=== PATIENT | female | born 1960 | race Caucasian/White ===

== ENCOUNTER 2017-09-19 06:35 | Day surgery (SDC) | payer MEDICARE, OTHER ==
[~2017-09-19 06:35] MED LIST: ADVIL200 MG PO; ALEVE220 M1 PO; AUGMENTIN875TAB PO; BUPROPION HCL150 M2 PO; DELZICOL400 MG PO; FERROUS FUM324 MG PO; HYDROCO/APAP1 TA9 PO; LISINOP/HCTZ1 TA2 PO; OSTEO BI-FLE PO; PHENTERMINE H37.5 MG PO; PRILOSEC20 MG PO
[2017-09-19] MEDS ORDERED: LORTAB 7.57.5 MG PO (08:36)
[2017-09-19 09:14] VITALS: BP 127/53
== END 2017-09-19 09:46 | disposition home or self-care (01) ==
LOC: ORM 06:35
PROVIDERS: ATTEND Obstetrics & Gynecology
PROC: 0UDB7ZX Extraction of Endometrium, Via Natural or Artificial Opening, Diagnostic (ICD-10-PCS; principal; 2017-09-19)
DX: N85.02 Endometrial intraepithelial neoplasia [EIN] (principal); E66.01 Morbid (severe) obesity due to excess calories; Z68.43 Body mass index [BMI] 50.0-59.9, adult; E11.9 Type 2 diabetes mellitus without complications; I10 Essential (primary) hypertension

== ENCOUNTER 2019-09-25 | Inpatient (IN) | payer MEDICARE, OTHER ==
[2019-09-24] VITALS (8 sets, daily range): BP systolic 116–152; BP diastolic 68–80
--- NOTE | 2019-09-24 00:53 | NUR ---
TO TX ROOM WITH STEADY GAIT
--- NOTE | 2019-09-24 00:54 | NUR ---
PT. WITH C/O ABD. PAIN FROM A HERNIA THAT IS TO BE REPAIRED HERE ON 09/29/19. BOWEL SOUNDS + IN ALL 4 QUADS.
[2019-09-24 01:29] LABS: IMMATURE GRANULOCYTES 0.6 % (0.0-5.0); MEAN CELL VOLUME 87.6 fL CALC (80.0-100.0); MEAN CORPUSCULAR HGB 28.9 pG CALC (26.0-32.0); NEUT# 17.94 thou/uL (2.00-7.15); RED BLOOD COUNT 5.57 mill/uL (4.20-5.60); RED CELL DISTRI WIDTH 14.8 % (11.5-15.5)
--- NOTE | 2019-09-24 01:32 | NUR ---
IVF, IV PAIN MED IV ANTIEMETIC, AND PO GASTROGRAPHIN GIVEN PER MD ORDER.
[2019-09-24 01:33] LABS: HEMATOCRIT 48.8 % (37.0-47.0); HEMOGLOBIN 16.1 g/dl (12.0-16.0)
[2019-09-24 01:43] LABS: ALBUMIN 4.2 g/dL (3.2-5.0); ALKALINE PHOSPHATASE 127 u/l (38-126); BUN 15 mg/dL (7-17); BUN/CREATININE RATIO 20 (12-20 (CALC)); CARBON DIOXIDE 25 mmol/l (22-30); CHLORIDE 94 mmol/l (95-108); CREATININE 0.7 mg/dL (0.5-1.0); GFR > 60 ML/MIN (>=60 (CALC)); GFR FOR AFR.AMER. > 60 ML/MIN (>=60 (CALC)); POTASSIUM 4.6 mmol/l (3.5-5.1); TOTAL PROTEIN 8.5 g/dL (6.3-8.2)
[2019-09-24 01:50] LABS: ANION GAP 18 (6-22 (CALC)); BILIRUBIN, TOTAL 0.9 mg/dL (0.0-1.4); SGOT/AST 92 u/l (14-36); SODIUM 132 mmol/l (137-146)
--- NOTE | 2019-09-24 02:14 | NUR ---
PT. DRINKING GASTROGRAPHIN, NO C/O NAUSEA OR VOMITING OFFERED.
--- NOTE | 2019-09-24 02:15 | NUR ---
PT. STATES HER ABD. PAIN IS NOW DECREASED TO A 6 ON A SCALE OF 1-10.
--- NOTE | 2019-09-24 03:15 | NUR ---
RESTING ON STRETCHER, NO C/O AT THIS TIME.
[2019-09-24 04:13] LABS: URINE BLOOD DIPSTICK NEGATIVE (NEGATIVE); URINE COLOR YELLOW; URINE GLUCOSE - DIPSTICK NEGATIVE (NEGATIVE); URINE KETONE TRACE mg/dL (NEGATIVE); URINE LEUK ESTERASE NEGATIVE (NEGATIVE); URINE NITRITE - DIPSTICK NEGATIVE (Negative); URINE PH 5.5 (4.5-8.0); URINE PROTEIN - DIPSTICK 30 mg/dL (NEG-TRACE); URINE UROBILINOGEN - DIPSTICK 0.2 E.U./dL (0.2)
--- NOTE | 2019-09-24 04:24 | NUR ---
IN ROOM TO DISCUSS CLINICAL FINDINGS WITH PT. VERBALIZED UNDERSTANDING.
[2019-09-24 04:37] LABS: URINE BILIRUBIN - DIPSTICK SMALL (NEGATIVE)
[2019-09-24 04:48] LABS: URINE SQUAMOUS EPITHELIAL CELL FEW EPI/hpf (0-FEW)
--- NOTE | 2019-09-24 05:20 | NUR ---
PT. TAKEN TO [facility] VIA STRETCHER WITH DAUGHTER AND BELONINGS. NO C/O.
--- NOTE | 2019-09-24 09:56 | NUR ---
CALL PLACED TO WILLIE REGARDING NAUSEA AND ELEVATED BLOOD SUGAR. PT NPO. MESSAGE LEFT WITH NURSE EDMAR. AWAITING CALL BACK.
--- NOTE | 2019-09-24 11:00 | NUR ---
PT UPDATED WITH PLAN FOR OR TODAY. PT AGREES WITH PLAN.
--- NOTE | 2019-09-24 11:06 | NUR ---
PT OFF FLOOR TO OR.
[2019-09-24 16:43] LABS: BUN 20 mg/dL (7-17); BUN/CREATININE RATIO 19 (12-20 (CALC)); CHLORIDE 103 mmol/l (95-108); GFR 57 ML/MIN (>=60 (CALC)); GFR FOR AFR.AMER. > 60 ML/MIN (>=60 (CALC)); SODIUM 131 mmol/l (137-146)
[2019-09-24 16:44] LABS: ANION GAP 17 (6-22 (CALC)); CARBON DIOXIDE 16 mmol/l (22-30); POTASSIUM 5.3 mmol/l (3.5-5.1)
[2019-09-24 16:57] LABS: HEMATOCRIT 37.4 % (37.0-47.0); HEMOGLOBIN 11.9 g/dl (12.0-16.0); IMMATURE GRANULOCYTES 0.5 % (0.0-5.0); MEAN CELL VOLUME 91.2 fL CALC (80.0-100.0); MEAN CORPUSCULAR HGB CONC 31.8 g/L CALC (32.0-36.0); NEUT# 15.04 thou/uL (2.00-7.15); RED BLOOD COUNT 4.1 mill/uL (4.20-5.60); RED CELL DISTRI WIDTH 14.8 % (11.5-15.5)
--- NOTE | 2019-09-24 17:20 | NUR ---
PT RETURNED FROM PACU
--- NOTE | 2019-09-24 19:17 | NUR ---
REPORT RECEIVED FROM GRACIELA PAK, PT RESTING IN BED NO S/S OF DISTRESS AT THIS TIME, WILL CONTINUE TO MONTIOR.
--- NOTE | 2019-09-24 21:30 | NUR ---
PT RESTING IN BED RESPIRATIONS EVEN AND UNLABORED ON O2 @ 2L VIA NC. LUNGS SOUND CLEAR. PEDAL PULSES STRONG. SAFETY PRECAUTIONS IN [place]. WILL CONTINUE TO MONITOR.
[~2019-09-25] MED LIST changes: +GLIPIZIDE10 MG PO; +LORTAB 7.57.5 MG PO; +METFORMIN500 MG PO; +OMEPRAZOLE DR20 MG PO
--- NOTE | 2019-09-25 00:10 | NUR ---
PT PROVIDED WITH ICE CHIPS PER REQUEST.
[2019-09-25 00:24] VITALS: BP 135/85
[2019-09-25 03:41] VITALS: BP 114/67
--- NOTE | 2019-09-25 04:05 | NUR ---
PT RESTING IN BED, DAUGHTER AT BEDSIDE. NO S/S OF DISTRESS AT THIS TIME.
[2019-09-25 05:37] LABS: ANION GAP 13 (6-22 (CALC)); BUN 26 mg/dL (7-17); BUN/CREATININE RATIO 28 (12-20 (CALC)); CHLORIDE 104 mmol/l (95-108); CREATININE 0.9 mg/dL (0.5-1.0); GFR > 60 ML/MIN (>=60 (CALC)); GFR FOR AFR.AMER. > 60 ML/MIN (>=60 (CALC)); POTASSIUM 4.8 mmol/l (3.5-5.1); SODIUM 135 mmol/l (137-146)
[2019-09-25 05:39] LABS: CARBON DIOXIDE 23 mmol/l (22-30)
[2019-09-25 05:42] LABS: HEMATOCRIT 39.5 % (37.0-47.0); HEMOGLOBIN 12.2 g/dl (12.0-16.0); IMMATURE GRANULOCYTES 0.5 % (0.0-5.0); MEAN CELL VOLUME 93.8 fL CALC (80.0-100.0); MEAN CORPUSCULAR HGB CONC 30.9 g/L CALC (32.0-36.0); PLATELET COUNT 373 thou/uL (130-400); RED BLOOD COUNT 4.21 mill/uL (4.20-5.60); RED CELL DISTRI WIDTH 15.3 % (11.5-15.5)
[2019-09-25 06:29] LABS: BAND 17 % (0-8); IMMATURE CELLS 0 %; MANUAL DIFFERENTIAL YES
[2019-09-25 07:40] VITALS: BP 105/65
--- NOTE | 2019-09-25 08:31 | NUR ---
ASSESSMENT DONE. PT IS A&O X3. PT STATED PAIN IN ABD 03/04. MEDICATED PT WITH TORADOL. IVF INFUSING WELL. ICE CHIPS PROVIDED. SCD IN PLACE. EDUCATED PT HOW TO USE THE I.S PT VERBALIZED UNDERSTANING AND WILL USE IT LATER. HARRIS IS PATENT WITH LINDA URINE. DRESSINGS IN ABD CDI. X2 ANNIE IN PLACE WITH RED DRAINAGE NOTED. DAUGHTER IN ROOM. CALL LIGHT IN REACH.
--- NOTE | 2019-09-25 08:50 | NUR ---
DR. TAPIA AT BEDSIDE TO ASSESS PT AND DISCUSS POC WITH PT.
[2019-09-25 10:30] VITALS: BP 118/78
--- NOTE | 2019-09-25 11:15 | NUR ---
PT IS SITTING IN RECLINER WITH NO S/S OF DISTRESS NOTED. PT DENIES NEEDS AT THIS TIME. CALL LIGHT IN REACH.
--- NOTE | 2019-09-25 14:48 | NUR ---
PT IS IN BED. PT STATED PAIN IN ABS 03/04. MEDICATED PT WITH DILAUDID. ICE CHIPS PROVIDED. PT DENIES ANY OTHER NEEDS AT THIS TIME. DAUGHTER IN ROOM. CALL LIGHT IN REACH.
[2019-09-25 15:00] VITALS: BP 114/55
--- NOTE | 2019-09-25 15:28 | NUR ---
PT IS RESTING IN BED VISTITING IN ROOM WITH FRIEND . PT DENIES ANY NEEDS AT THIS TIME. CALL LIGHT IN REACH.
--- NOTE | 2019-09-25 19:00 | NUR ---
REPORT RECEIVED FROM GRACIELA LION. PT RESTING IN RECLINER, NO S/S OF DISTRESS AT THIS TIME. WILL CONTINUE TO MONITOR.
[2019-09-25 19:20] VITALS: BP 112/67
--- NOTE | 2019-09-25 22:10 | NUR ---
PT BULB CAME OFF OF THE END OF THE ANNIE DRAIN, BULB PLACE BACK ON ANNIE DRAIN, ANNIE DRAINING.
--- NOTE | 2019-09-25 22:15 | NUR ---
PATIENT REPORT RECEIVED FROM SN ALIYA. PATIENT SITTING ON TOILET. PT HAD MEDIUM SIZED LOOSE STOOL. PERICARE PROVIDED. PT ASSISTED BACK TO BED. CALL LIGHT WITHIN EASY REACH, BED IN LOWEST POSITION. PT IS ABLE TO MAKE NEEDS KNOWN. AUDIOVISUAL LIBRARIAN WILL CONTINUE TO MONITOR.
--- NOTE | 2019-09-26 | NUR ---
ANTIBIOTIC ADMINISTERED PER ORDER. PT RESTING COMFORTABLY. ANNIE DRAIN EMPTIED OUT. RIGHT ANNIE DRAIN WITH 40CC SANGUINEOUS FLUID. LEFT ANNIE DRAIN WITH 10CC SANGUINEOUS FLUID. CARD GAME OPERATOR WILL CONTINUE TO MONITOR
--- NOTE | 2019-09-26 01:41 | NUR ---
DILAUDID ADMISITERED FOR COMPLAINT OF PAIN LEVEL OF 7/10. FLEXOGRAPHIC PRESS HELPER WILL CONTINUE TO MONITOR.
[2019-09-26 03:55] VITALS: BP 104/63
--- NOTE | 2019-09-26 04:06 | NUR ---
PATIENT DENIES PAIN. RESTING COMFORTABLY. PATIENT AGREES TO NOTIFY CARE MANAGEMENT COORDINATOR OF ANY CONCERNS. CARE MANAGEMENT COORDINATOR WILL CONTINUE TO MONITOR
--- NOTE | 2019-09-26 06:42 | NUR ---
TORADOL ADMINISTERED FOR COMPLAINT OF PAIN WITH GOOD EFFECT
[2019-09-26 06:52] LABS: ANION GAP 11 (6-22 (CALC)); BUN 22 mg/dL (7-17); BUN/CREATININE RATIO 31 (12-20 (CALC)); CARBON DIOXIDE 21 mmol/l (22-30); CHLORIDE 110 mmol/l (95-108); CREATININE 0.7 mg/dL (0.5-1.0); GFR > 60 ML/MIN (>=60 (CALC)); GFR FOR AFR.AMER. > 60 ML/MIN (>=60 (CALC)); SODIUM 138 mmol/l (137-146)
[2019-09-26 07:55] VITALS: BP 127/71
--- NOTE | 2019-09-26 07:55 | NUR ---
RESTING IN BED ON ROUNDS, AWAKENS TO NAME. RESP NON-LABORED. LUNGS CLEAR THROUGHOUT. ABD OBESE, SOFT, SURGICALLY TENDER WITH ACTIVE BOWEL SOUNDS HEARD. MIDLINE AND LLQ DSGS CDI. ANNIE TO MIDLINE AND TO LEFT INC INTACT, COMPRESSED WITH SEROSANGUINOUS DRAINAGE NOTED. 2X2'S SECURED WITH TEGADERM IN PLACE TO PUNCTURE SITES JONA BS, ALL ARE CDI. GENERALIZED EDEMA NOTED. HARRIS DRAINING LINDA URINE WITH SEDIMENT. SCD'S IN PLACE TO BLE. IV IN RFA, SITE BENIGN, NS INFUSING AT 150 MLHR. DENIES NEEDS AT THIS TIME. CALL RAI IN REACH.
--- NOTE | 2019-09-26 10:30 | NUR ---
SITTING UP IN RECLINER WITH LEGS ELEVATED. DAUGHTER AT BEDSIDE.
[2019-09-26 11:22] VITALS: BP 145/76
--- NOTE | 2019-09-26 11:40 | NUR ---
DR HILL IN TO SEE PATIENT. INFORMED DR OF GENERALIZED EDEMA AND BM X3. PATIENT IVF'S DECREASED TO 75 ML/HR. PATIENT TO START CLEAR LIQUID DIET FOR LUNCH.
--- NOTE | 2019-09-26 13:00 | NUR ---
PATIENT TOLERATED CLEAR LIQUID LUNCH WELL. DENIES ANY NAUSEA. RESTING IN RECLINER.
--- NOTE | 2019-09-26 14:15 | NUR ---
MEDICATED FOR C/O OPERATIVE PAIN WITH PERCOCET 5/325.
--- NOTE | 2019-09-26 15:00 | NUR ---
PATIENT NAPPING IN RECLINER.
[2019-09-26 15:25] VITALS: BP 130/81
--- NOTE | 2019-09-26 18:00 | NUR ---
ANNIE DRAIN #1 MIDLINE HAD MINIMAL OUTPUT OF SEROSANGUINOUS-10 ML. ANNIE DRAIN #2 RT ABD HAD 110 ML OUT SEROSANGUINOSUS FLUID.
[2019-09-26 18:54] VITALS: BP 159/80
--- NOTE | 2019-09-26 19:58 | NUR ---
PT SITTING IN RECLINER. A&O X3. O2 @2L VIA NC IN PLACE. NO DISTRESS NOTED. PT C/O OF FEELING BLOATED BUT STATES THAT IT GOES AWAY WHENEVER SHE AMBULATES AROUND HER ROOM AND PASSES GAS. PER PT SHE HAS BEEN TOLERATING THE LIQUID DIET WITHOUT FEELING NAUSEOUS. ABD DRESSINGS CDI. ANNIE DRAIN #1 & #2 DRAINING SEROSANGUINEOUS FLUID. NO OTHER NEEDS AT THIS TIME. DISCUSSED POC. ASSESSMENT COMPLETED. CALL LIGHT IN REACH. CONTINUE TO MONITOR.
--- NOTE | 2019-09-26 21:09 | NUR ---
PT C/O PAIN 04/04. TORADOL GIVEN. PT TOLERATED WELL. CONTINUE TO MONITOR.
--- NOTE | 2019-09-26 21:34 | NUR ---
REASSESSED PTS PAIN LEVEL, PER PT "IT IS STILL THE SAME IT DID NOT SEEM TO HELP"
--- NOTE | 2019-09-26 22:38 | NUR ---
IV DILAUDID GIVEN. PT TOLERATED WELL. WILL REASSESS.
--- NOTE | 2019-09-26 23:03 | NUR ---
PTS PAIN LEVEL 3/10. PER PT "THIS MEDICATION REALLY HELPED ME". CONTINUE TO MONITOR.
--- NOTE | 2019-09-27 01:00 | NUR ---
PT SLEEPING IN BED WITH DAUGHTER AT BEDSIDE. NO DISTRESS NOTED. RESP EVEN AND UNLABORED. CONTINUE TO MONITOR.
[2019-09-27 04:35] VITALS: BP 131/75
[2019-09-27 07:18] VITALS: BP 136/79
--- NOTE | 2019-09-27 07:30 | NUR ---
ASSESSMENT DONE. PT IS A&O X3. PT STATED PAIN IN ABD. MEDICATED PT WITH TORADOL. ABD DRESSINGS IN PLACE AND X2 ANNIE IN PLACE. ENCOURAGE PT TO USE THE I.S. IVF INFUSING WELL. KIMBERLY IS PATENT WITH LINDA URINE. SCD IN PLACE. CALL LIGHT IN REACH. DAUGHTER IN ROOM.
--- NOTE | 2019-09-27 11:10 | NUR ---
PT IS SITTING IN THE RECLINER. PT STATED PAIN IS OKAY . PT DENIES PAIN MEDICATION AT THIS TIME OR NEEDS. CALL LIGHT IN REACH.
--- NOTE | 2019-09-27 12:13 | NUR ---
DR. TAPIA IN ROOM TO ASSESS PT. NOTIFIED MD THAT PT VOMITED. CALL LIGHT IN REACH.
--- NOTE | 2019-09-27 14:48 | NUR ---
MEDICATED PT WITH ZOFRAN. PT VOMITED 250ML GREEN COLOR. DRESSINGS CHANGE IN ABD. REMOVED HARRIS AND PT TOLERATED WELL. CALL LIGHT IN REACH.
[2019-09-27 15:45] VITALS: BP 164/82
--- NOTE | 2019-09-27 16:00 | NUR ---
PT IS SITTING IN RECLINER. PT STATED PAIN IN ABD 05/05. MEDICATED PT WITH DILAUDID. ICE CHIPS PROVIDED PER PT REQUEST. PT DENIES ANY OTHER NEEDS AT THIS TIME. CALL LIGHT IN REACH.
[2019-09-27 18:45] VITALS: BP 171/96
--- NOTE | 2019-09-27 19:50 | NUR ---
PT SITTING IN RECLINER. A&O X3. O2 VIA NC @2L IN PLACE. PT C/O OF NAUSEA, CURRENT VOMITING EPISODE GREEN IN COLOR. PT C/O OF PAIN 8/10 IN ABD AREA. GENERALIZED EDEMA NOTED. PT STATES THAT SHE HAS NOT BEEN ABLE TO EAT OR DRINK ANYTHING TODAY DUE TO HER FEELING BLOATED. REGLAN AND DILAUDID GIVEN. ASSISTED PT TO THE RECLINER. SCD'S IN PLACE. DISCUSSED POC. ASSESSMENT COMPLETED. CALL LIGHT IN REACH. CONTINUE TO MONITOR.
--- NOTE | 2019-09-27 21:07 | NUR ---
PT STATES THAT SHE IS FEELING A LITTLE BETTER. ASKED FOR GINGERALE AND ICE. CONTINUE TO MONITOR.
--- NOTE | 2019-09-27 23:27 | NUR ---
PT C/O OF NAUSEA. ZOFRAN GIVEN. CONTINUE TO MONITOR.
--- NOTE | 2019-09-27 23:48 | NUR ---
PT ASKED IF SHE HAS URINATED, PER PT SHE HAS NOT. EXPLAINED TO PT THAT A BLADDER SCAN WOULD BE OBTAINED. PT AGREED AND VERBALIZED UNDERSTANDING.
--- NOTE | 2019-09-28 00:08 | NUR ---
BLADDER SCAN OBTAINED, DIFFICULTY GETTING AN ACCURATE READING. MULTIPLE READINGS SHOWED 41.
--- NOTE | 2019-09-28 01:35 | NUR ---
PT C/O N/V AND SHARP PAIN 04/04. REGLAN AND DIAUDID GIVEN.
--- NOTE | 2019-09-28 01:45 | NUR ---
PER PT SHE HAD THE URGE TO GO TO THE BATHROOM. PT ASSISTED TO THE BATHROOM BY DAUGHTER BUT PT UNABLE TO MAKE IT IN TIME, STATES THAT SHE HAD A "VERY GOOD AMOUNT COME OUT " AND THAT SHE FEELS MUCH BETTER. ASSISTED PT BACK INTO RECLINER AND ELEVATED LEGS ON THE BED TO DECREASE SWELLING. CALL LIGHT IN REACH CONTINUE TO MONITOR.
--- NOTE | 2019-09-28 02:00 | NUR ---
PT SITTING IN RECLINER WITH DAUGHTER AT BEDSIDE. PT STATES HER PAIN LEVEL IS DECREASING AND THE N&V IS SUBSIDING. CONTINUE TO MONITOR.
--- NOTE | 2019-09-28 03:30 | NUR ---
PT SLEEPING IN RECLINER WITH DAUGHTER AT BEDSIDE. NO DISTRESS NOTED. CONTINUE TO MONITOR.
[2019-09-28 03:50] VITALS: BP 169/88
[2019-09-28 07:40] VITALS: BP 182/99
--- NOTE | 2019-09-28 07:40 | NUR ---
ASSESSMENT IS COMPLTED: PT IS SITTING IN THE CHAIR. NO DISTRESS NOTED. IV SITE IS FREE FROM REDNESS OR EDMEA. HR IS REG,PULSES ARE STRONG X4, ABD IS SOFT AND DISTENDED. DRESSING IS CDI. 2 ANNIE DRAINS 1 SMALL DRAINAGE, 2 MODERATE DRAINAGE. SCD'S IN PLACE. PT IS SITTING IN THE CHAIR. CONTINUE TO OBSERVE AND MONITOR.
--- NOTE | 2019-09-28 08:28 | NUR ---
SPOKEW ITH DR TAPIA RE: PT VOMITING AND PASSING GAS HAVING BM
--- NOTE | 2019-09-28 09:46 | NUR ---
PT WENT FOR A SBS. UNABLE TO COMPLETE HAS CONTRAST IN THE COLON. RESIDUAL FROM 09/24/19. AT 1024 RECEIVED A CALL FROM [facility] TO INFORM THIS METAL MINE INSPECTOR THEY WILL SPEAK WITH DR. TAPIA RE: THIS MATTER.
--- NOTE | 2019-09-28 12:15 | NUR ---
PT IS RELAXING IN BED WITH NO DISTRESS NOTED. IV SITE IS FREE FROM REDNESS OR EDEMA.CONTINUE TO OBSERVE AND MONITOR.
--- NOTE | 2019-09-28 15:30 | NUR ---
CALLED DR TAPIA RE: PT C/O GAS BUILD UP, AND BP HIGH , NEW MEDS WERE ORDERED TO START GIVING PT.
[2019-09-28 15:40] VITALS: BP 186/104
--- NOTE | 2019-09-28 16:30 | NUR ---
PT IS RELAXING IN THE CHAIR, NO DISTRESS NOTED. IV SITE IS FREE FROM RENDESS OR EDMEA.
--- NOTE | 2019-09-28 18:22 | NUR ---
IV SITE CAME OUT ,
--- NOTE | 2019-09-28 18:40 | NUR ---
REMOVED DRESSING ON ABD AND REPLACED WITH ABD PAD . AND ANNIE DRAINAGE 4X4'S. PT TOLERATED WELL. USED CLEAN TECHNIQUE.
--- NOTE | 2019-09-28 18:45 | NUR ---
VANITA RN REPLACED IV WITH #22 IN LFA WITH 1 ATTEMPT PT TOLERATED WELL
[2019-09-28 19:23] VITALS: BP 163/97
--- NOTE | 2019-09-28 20:00 | NUR ---
SHIFT REPORT RECEIVED FROM ARI COVARRUBIAS. PT IN ROOM SITTING UP IN CHAIR. CALL LIGHT WITHIN EASY REACH. CLINICAL MANAGER WILL CONTINUE TO MONITOR
--- NOTE | 2019-09-28 21:00 | NUR ---
SIMETHICONE AND OXYCODONE/ACETAMINOPHEN ADMINISTERED FOR 7/10 STOMACH PAIN. PT STATES PAIN IS SHARP STATES SHE IS HAVING GAS PAIN. EDUCATION PROVIDED ON USE OF SIMETHICONE FOR GAS PAIN. REGLAN ADMINISTERED FOR COMPLAINT OF NAUSEA. PT EDUCATED ON AMBULATING TO HELP RELIEVE GAS PAIN. SET UP INSPECTOR WILL CONTINUE TO MONITOR.
--- NOTE | 2019-09-28 22:10 | NUR ---
SKEIN BLEACHER ADMINISTERED DILAUDID FOR COMPLAINT OF 9/10 PAIN IN ABDOMEN. PT STATES THAT SHE IS HAVING GAS PAIN DESCRIBES PAIN "SHARP AND CRAMPLIKE". PT STATES SHE IS BELCHING AND PASSING GAS. SKEIN BLEACHER WILL CONTINUE TO MONITOR.
--- NOTE | 2019-09-28 22:54 | NUR ---
PT STATES PAIN IS RESOLVING. PT RATES PAIN AT 7 AT THIS TIME AND STATE THAT SHE IS PASSING GAS
--- NOTE | 2019-09-29 | NUR ---
PATIENT MEDICATED WITH DILUADID FOR COMPLAINT OF ABDOMINAL PAIN. PT STATES SHE IS PASSING GAS. EDUCATION PROVIDED ON FALL PRECAUTION. PT'S DAUGHTER IN ATTENDANT. PT AGREES TO NOTIFY MARKET RESEARCH ASSOCIATE OF ANY CONCERNS OR HELP WITH TRANSFER IF NEEDED. PT RATES PAIN AT 7/10 AT THIS TIME AND STATES PAIN MEDS EFFECTIVE IN REDUCING PAIN FROM 9. MARKET RESEARCH ASSOCIATE WILL CONTINUE TO MONITOR
--- NOTE | 2019-09-29 00:57 | NUR ---
PAIN MEDICATION ADMINISTERED FOR COMPLAINT OF PAIN OF 8/. DILUADID 1MG ADMINISTERED PER DR TAPIA'S ORDER ON THE EMAR. PT CAN GET DILUADID EVERY HOUR PER ORDER. CFD ENGINEER WILL CONTINUE TO MONITOR
--- NOTE | 2019-09-29 02:35 | NUR ---
OYCODONE/ACETAMINOPHEN ADMINISTERED FOR COMPLAINT OF PAIN IN ABDOMEN. MARINE FIRE FIGHTER WILL CONTINUE TO MONITOR
--- NOTE | 2019-09-29 04:00 | NUR ---
PATIENT IS GETTING PAIN MEDICATION EVERY 1 TO 2 HOURS. PT EDUCATED ON AMBULATING TO HELP INCREASE GI MOTILITY. PT EDUCATED ON POSITIVE EFFECT OF AMBULATION ON GAS PAIN. PT STATES THAT SHE WILL AMBULATE IN THE AM. MOBILE HOME LOT UTILITY WORKER WILL CONTINUE TO MONITOR
[2019-09-29 04:08] VITALS: BP 154/83
[2019-09-29 05:47] LABS: HEMATOCRIT 38.3 % (37.0-47.0); MEAN CELL VOLUME 93.2 fL CALC (80.0-100.0); MEAN CORPUSCULAR HGB 29.2 pG CALC (26.0-32.0); MEAN CORPUSCULAR HGB CONC 31.3 g/L CALC (32.0-36.0); NEUT# 9.22 thou/uL (2.00-7.15); RED BLOOD COUNT 4.11 mill/uL (4.20-5.60); RED CELL DISTRI WIDTH 15.2 % (11.5-15.5)
[2019-09-29 06:04] LABS: IMMATURE GRANULOCYTES 8.3 % (0.0-5.0)
[2019-09-29 06:09] LABS: ALBUMIN 3.3 g/dL (3.2-5.0); ALKALINE PHOSPHATASE 169 u/l (38-126); ANION GAP 14 (6-22 (CALC)); BILIRUBIN, TOTAL 1.6 mg/dL (0.0-1.4); BUN 23 mg/dL (7-17); BUN/CREATININE RATIO 30 (12-20 (CALC)); CARBON DIOXIDE 23 mmol/l (22-30); CHLORIDE 106 mmol/l (95-108); CREATININE 0.7 mg/dL (0.5-1.0); GFR > 60 ML/MIN (>=60 (CALC)); GFR FOR AFR.AMER. > 60 ML/MIN (>=60 (CALC)); POTASSIUM 4.4 mmol/l (3.5-5.1); SGOT/AST 128 u/l (14-36); SODIUM 139 mmol/l (137-146); TOTAL PROTEIN 6.8 g/dL (6.3-8.2)
--- NOTE | 2019-09-29 06:21 | NUR ---
PAIN MEDICATION ADMINISTERED AT 0607 FOR COMPLAINT OF 9/10 GAS PAIN. PT AGREES TO AMBULATE THIS AM, WHEN SHE IS MORE AWAKE. PARTS CLEANER WILL NOTIFY INCOMING SHIFT
--- NOTE | 2019-09-29 07:00 | NUR ---
SHFIT CHANGE REPORT, PT AWAKE ALERT AND ORIENTED RESTING IN BED, TELE MONITOR IN PLACE, C/O RIGHT SHOULDER PAIN, WARM COMPRESS AND ANALGESIC GIVEN, ALL NEEDS ADDRESSED, CALL RAI IN REACH.
[2019-09-29 08:05] VITALS: BP 139/93
--- NOTE | 2019-09-29 11:00 | NUR ---
PT SITTING UP IN RECLINER, SPOUSE VISITING, MEDICAL TEAM ROUNDING AT THIS TIME AND DISCUSSING PLAN OF CARE.
--- NOTE | 2019-09-29 11:00 | NUR ---
DR TAPIA HERE ROUNDING, PT EXPRESSES DESIRE TO GO HOME, DR TAPIA IS NOT READY YET TO D/C BUT PT INSIST SHE WANTS TO GO HOME. IMAGING TESTS ORDERED AND IN PROCESS AND WILL CONTINUE TILL AFTER 1700, PT AWARE AND WILL STAY FOR TESTS.
[2019-09-29 14:40] VITALS: BP 154/104
--- NOTE | 2019-09-29 16:00 | NUR ---
ANNIE DRAINS X [address] TAPIA, PT TOLERATED WELL, PRESSURE DRESSINGS APPLIED TO PUNCTURE SITES.
--- NOTE | 2019-09-29 19:00 | NUR ---
PT INSIST SHE IS GOING HOME, INFORMED/EDUCATED ON LEAVING AMA, STATED UNDERSTANDING BUT STILL DECIDES TO LEAVE. DR TAPIA AND GWENDOLYN ([facility] ARABIC LINGUIST) INFORMED.
--- NOTE | 2019-09-29 19:21 | NUR ---
Discharge instructions given. Patient verbalizes understanding of same. Discharged in stable condition via Wheelchair to [facility] with family. All belongings sent with pt.
== END 2019-09-29 19:20 | disposition left against medical advice (07) | DRG 355 ==
PROVIDERS: Family Medicine; ADMIT Surgery
PROC: 0WUF0JZ Supplement Abdominal Wall with Synthetic Substitute, Open Approach (ICD-10-PCS; principal; 2019-09-24)
PROC: 0WJF4ZZ Inspection of Abdominal Wall, Percutaneous Endoscopic Approach (ICD-10-PCS; 2019-09-24)
DX: K43.0 Incisional hernia with obstruction, without gangrene (principal); R11.2 Nausea with vomiting, unspecified; E11.9 Type 2 diabetes mellitus without complications; Z79.84 Long term (current) use of oral hypoglycemic drugs; Z90.49 Acquired absence of other specified parts of digestive tract
CPT/HCPCS: C1781; J0131; J1100; P9047